=== PATIENT | female | born 1945 | race Caucasian/White ===

== ENCOUNTER 2016-05-13 09:39 | Inpatient (IN) ==
[2016-05-13] MEDS ORDERED: CeFAZolin Pre 2,000 MG/100 ML 2,000 MG/100 ML BAG IVPB ONE (09:59)
[2016-05-13] MEDS ORDERED: Ringers Solution, Lactated 1,000 ML IVC SCH ×2 (10:00→17:49)
[2016-05-13] MEDS ORDERED: Lidocaine 1% 20 ML MDV ID ONE (10:00)
--- NOTE | 2016-05-13 10:16 | Anesthesia Evaluation PreOp ---
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 Anxiety/depression maintained on Citalopram) Other Medical History: Renal (CRI/GFR = 52), Thyroid (maintained on Synthroid) Anesthesia History: No Prior Anesthetic Complications, Past Anesthesia (Hyster, Appy, Tubal , V-jrxaxop-Lybteovmtp Artery stent/Angioplasty via R-neck surgical exposure 01/2016) Alcohol Use: none Drug use: none Medications and Allergies Amlodipine [Norvasc] 5 mg PO HS 01/29/16 [History] Citalopram Hydrobromide [Celexa] 20 mg PO DAILY 01/29/16 [History] Digoxin [Lanoxin] 0.125 mg PO DAILY 01/29/16 [History] Levothyroxine [Synthroid] 50 mcg PO 0630 01/29/16 [History] Metoprolol [Lopressor] 50 mg PO BID 01/29/16 [History] Multivitamin [One Daily Essential] 1 each PO DAILY 01/29/16 [History] Simvastatin [Zocor] 20 mg PO HS 01/29/16 [History] Topiramate [Topamax] 50 mg PO HS 01/29/16 [History] Triamterene/HCTZ 37.5/25mg [Dyazide] 1 each PO DAILY 01/29/16 [History] Clopidogrel Bisulfate [Plavix] 75 mg PO DAILY #30 tablet 01/30/16 [Rx] Allergies No Known Allergies Allergy (Verified 01/29/16 07:34) - Meds/Allergy Pre-op Review Medications Reviewed: Yes Allergies Reviewed: Yes Beta Blockers on Current Med List: Yes (Metorprolol ) If Beta Blockers taken, Date/Time (Last Dose taken): 05/13/16 @0600 Anesthesia Results - Labs Laboratory Tests 05/08/16 05/08/16 05/08/16 08:22 08:22 08:22 WBC 8.7 Hgb 15.3 Hct 44.0 Plt Count 195 PT 12.3 H INR 1.1 APTT 30.2 Sodium 140 Potassium 3.3 L Chloride 103 Carbon Dioxide 29 BUN 18 Creatinine 1.04 Est GFR (Non-Af Amer) 52 L - Imaging EKG: image reviewed (58bpm SB w/ 1st degree AVB, marked LAD, LBBB) Anesthesia Exam O2 Sat Height 1.57 m Height 1.57 m Weight 54.431 kg Weight 54.431 kg O2 Sat by Pulse Oximetry 98 Vital Signs Temp Pulse Resp BP Pulse Ox 98.5 F 58 18 128/59 98 05/13/16 10:02 05/13/16 10:02 05/13/16 10:02 05/13/16 10:02 05/13/16 10:02 Height: 5'2" Weight: 121# BMi = 22 - HEENT Pupil (Motor): Pupils equal, EOMI Mallampati: II Teeth: Normal, Edentulous (upper) Denture Type: Upper: Complete Oral Opening: Greater than 3 - MACHINE CAGE MAKER LOC: Oriented MACHINE CAGE MAKER Motor: Normal RUE, Normal LUE, Normal RLE, Normal LLE, Normal Face MACHINE CAGE MAKER Sensory: Normal: RUE, LUE, RLE, LLE, Face - Cardiac Rhythm: Regular Murmur: None - Pulmonary Breath Sounds: bilateral Clear Respiratory Effort: Symmetrical Anesthesia Assess/Plan ASA Score: 3 (PVD, Hypothyroidism, HTN, Chol) Anesthetic Plan: General Autologous Blood: Yes Monitoring Plan: Standard Monitors, A-Line Recovery Plan: PACU Anes Supervising Prov Stmt: Pt seen/evaluated, R&B Discussed, questions answered and consent obtained. Hailey Pierre MD
[2016-05-13] MEDS ORDERED: Lidocaine 1% 20 ML MDV ONE (10:57)
[2016-05-13] MEDS ORDERED: Heparin 1,000 UNITS/500 mL NS 1,000 ML ONE (10:57)
--- NOTE | 2016-05-13 11:03 | History & Physical Report ---
Date of Encounter: 05/13/16 Time of Encounter: 11:03 24 Hour HP Update - Instructions Instructions: If the History and Physical is less than 30 days old and was completed prior to A.M. admission and or procedure and has NOT been updated on calendar day of procedure please complete this update prior to performing procedure. - Update Patient reports changes in Medical Condition: No Changes in assessment/condition: No Changes in Medication: No Preop tests/diagnostics Reviewed: Yes Surgery Remains Indicated: Yes Consent for Planned Operative Procedure(s) Verified: Yes - Pre-Operative Checklist Preoperative Checklist Indicated: Yes Prophylactic Antibiotic Ordered: Yes Home Medications Include Beta Jose Carlos: Yes Beta Jose Carlos Taken Today (Day of Surgery): Yes Beta Jose Carlos Taken Yesterday (Day Prior to Surgery): Yes Is VTE Prophylaxis Indicated?: Yes
[2016-05-13] MEDS ORDERED: *HR* Propofol 200 MG/20 ML VIAL IVP ONE (11:09)
[2016-05-13] MEDS ORDERED: Lidocaine -MPF 2% 2 ML VIAL ONE ×2 (11:09→11:16)
[2016-05-13] MEDS ORDERED: *HR* FentaNYL (PF) 100 MCG/2 ML VIAL ONE (11:09)
[2016-05-13] MEDS ORDERED: *HR* Succinylcholine 200 MG/10 ML VIAL IVP ONE (11:09)
[2016-05-13] MEDS ORDERED: Heparin 1,000 UNITS/500 mL NS 500 ML ONE (11:13)
--- NOTE | 2016-05-13 11:52 | Operative Note ---
Date of procedure: 05/13/16 Pre-op diagnosis: left carotid stenosis/left eye blindness Post-op diagnosis: same Procedure: left carotid endarterectomy with 8Fr shunt and patch angioplasty Complications: none Anesthesia: GETA Surgeon: Cl Toro Estimated blood loss (cc): 350 Specimen: none Condition: stable Disposition: PACU Procedure in Detail: History Greta Michel is a 71-year-old white female presented recently to the clinic with acute left eye visual loss. She initially had had a severe left-sided headache. When she will next morning she had loss of vision in her left eye. She was seen by ophthalmology. Plaque was detected in the retinal masters and the patient was referred back to vascular surgery after duplex scan was performed. The duplex scan showed a significant abnormality in the left internal carotid artery area this was significantly different than what was observed on the duplex scan from April 2015. This then led to an angiogram that was performed last week. This demonstrated a high-grade lesion of greater than 90-95% in the left internal carotid artery. The patient is also status post a innominate stent angioplasty which was performed in January 2016. The stent angioplasty is widely patent and there are no signs of thrombus or distortion of the stent. Procedure After informed consent was obtained patient was taken to the operating room. An arterial line was placed. The left neck was then sterilely prepped and draped. A timeout protocol was observed. An oblique incision was then made on the left neck. Dissection was carried down to the carotid sheath. The patient demonstrated significant inflammatory changes of the soft tissue and the perivascular tissue of the carotid sheath. The hypoglossal nerve was identified and preserved. Selective dissection was made of the external and common carotid artery. Because of the recent embolic phenomenon to the internal was not dissected until after heparin was administered. After the heparin was administered the internal was dissected and controlled. The vessel was then clamped. No and the artery was opened. A high-grade stenotic lesion was found well in excess of 90-95%. There is no fresh thrombus or signs of dissection. There was a large ulcer however on the posterior wall of the proximal left internal carotid artery. The endarterectomy was then begun at the distal common carotid artery. The endarterectomy was performed of this. Thyroid and external carotid artery orifice ease. The endpoint on the internal carotid artery was smooth. No tacking sutures were necessary. The bed of the vessel was then inspected for any residual debris. A patch angioplasty was then performed. This was sewn in position using 2 6-0 Prolene sutures. It was noted that the wall of the internal carotid artery was extraordinarily thin following the endarterectomy. After appropriate backbleeding and flushing the Czech shunt had been placed initially was clamped and divided and removed. The final few sutures were then placed into the patch and then the internal was allowed to backbleed. The external and common were opened and finally the internal was reopened. The patient had significant oozing from the needle holes along the entire length of the patch angioplasty site. The patient also required repair sutures in the very thin and endarterectomized internal carotid artery. This led to a greater than average blood loss due to this persistent oozing. It also led to the administration of intravenous protamine as well as topical agents including thrombin-soaked Gelfoam and fibrillar. Once hemostasis was achieved and verified the wound was copiously irrigated with antibiotic containing solution. It was then closed in layers. A dry sterile dressing was applied. The anesthetic was terminated. The patient awoke from anesthesia and was thought to be neurologically intact. She was then extubated and taken from the operating room to the recovery room in stable condition.
[2016-05-13] MEDS ORDERED: EPHEDrine 50 MG/ML VIAL ONE (11:57)
[2016-05-13] MEDS ORDERED: *HR* Remifentanil 2 MG VIAL IVP ONE (12:11)
[2016-05-13] MEDS ORDERED: *HR* Vasopressin 20 UNIT/ML VIAL ONE (12:18)
[2016-05-13] MEDS ORDERED: Protamine Sulfate 50 MG/5 ML VIAL IVP ONE (14:13)
[2016-05-13] MEDS ORDERED: Albumin Human 5% 25.0 GM/500 ML VIAL ONE (14:41)
[2016-05-13 14:56] LABS: Hematocrit 32.4 % (35.3-44.9)
[2016-05-13 15:00] LABS: Hemoglobin 11.1 g/dL (11.5-15.4)
[2016-05-13] MEDS ORDERED: Glycopyrrolate 0.2 MG/ML VIAL IVP ONE (16:07)
[2016-05-13] MEDS ORDERED: Glycopyrrolate 0.2 MG/ML VIAL ONE (16:07)
--- NOTE | 2016-05-13 17:23 | Anesthesia Evaluation Post Op ---
Date of Encounter: 05/13/16 Time of Encounter: 17:21 - Vital Signs Vital Signs: Vital Signs/O2 Sat/Glucose, Most Current Temp Pulse Resp BP Pulse Ox 05/13/16 16:47 59 18 82/36 99 05/13/16 16:37 63 18 81/35 98 05/13/16 16:27 97.0 F L 63 16 88/36 99 05/13/16 16:17 66 18 84/25 99 05/13/16 16:07 66 18 80/24 99 05/13/16 15:57 97.0 F L 55 16 79/24 99 05/13/16 15:47 57 16 90/34 97 05/13/16 15:37 59 16 100/40 95 05/13/16 15:27 96.9 F L 64 16 103/42 95 - Lungs Lungs: Clear Ascult./Percussion - Airway Airway: Non-obstructed - Cardiovascular Regular Rate - Mental Status Mental Status: Alert & Oriented, Answers Appropriately - Pain Pain Scale: 1 Pain Scale used: Numeric (1 - 10) - Nausea Vomiting Nausea Vomiting: Not Present - Hydration Hydration: Ice chips, Rodrigez catheter - Discharge PostOp Status: Transfer Patient to floor (Hypotensive BP despite otherwise doing well. Dr. Toro notified and requests Levophed gtt for target SBP >100 and placement in ICU) Anes Supervising Prov Stmt: Pt seen/evaluated, transferring to ICU for BP management. Pt otherwise doing well. - MD Ignacio
[2016-05-13] MEDS ORDERED: Norepinephrine 4 MG in D5% in Water 250 ML IVC SCH ×3 (17:30→18:45)
[2016-05-13] MEDS ORDERED: *HR* HYDROcodone/Acet 5/325 mg TABLET PO PRN ×2 (17:49→18:45)
[2016-05-13] MEDS ORDERED: *HR* Morphine 2 MG/ML SYRINGE IVP PRN (17:49)
[2016-05-13] MEDS ORDERED: Naloxone 0.4 MG/ML INJ IVP PRN ×2 (17:49→18:45)
[2016-05-13] MEDS ORDERED: Ondansetron 4 MG/2 ML VIAL IVP PRN ×2 (17:49→18:45)
[2016-05-13] MEDS ORDERED: Acetaminophen 325 MG TABLET PO PRN (17:49)
--- NOTE | 2016-05-13 19:40 | Event Note ---
Date of Encounter: 05/13/16 Time of Encounter: 18:30 The patient is status post a left carotid endarterectomy. While in the PACU the patient was noted to have persistent hypotension that did not respond to intravenous fluid bolus. I was notified later in the afternoon and recommended the patient be transferred to the intensive care unit so that an vasopressor drip could be started. I anticipate that the issue is related to the carotid sinus effect with overstimulation leading to hypotension following carotid endarterectomy. This is a temporary and transient effect. The patient needs support with vasopressors until this neurologic reflex resets itself. Therefore the patient was transferred to the intensive care unit on a leave the fed drip at a low dose. She is neurologically stable. There is no left neck hematoma. I reviewed with the patient and her these issues and answered all her questions.
[2016-05-13] MEDS: Acetaminophen 325 MG TABLET PO PRN (19:52)
[2016-05-13] MEDS: Topiramate 25 MG TABLET PO SCH (19:53)
[2016-05-13] MEDS: ceFAZolin 2,000 MG in D5% in Water 100 ML IVPB SCH (19:54)
[2016-05-13] MEDS: Ringers Solution, Lactated 1,000 ML IVC SCH (19:54)
[2016-05-13] MEDS: *HR* Digoxin 0.125 MG TABLET PO SCH (19:55)
[2016-05-13] MEDS ORDERED: ceFAZolin 2,000 MG in D5% in Water 100 ML IVPB SCH (20:00)
[2016-05-13] MEDS ORDERED: *HR* Digoxin 0.125 MG TABLET PO SCH ×2 (21:00)
[2016-05-13] MEDS ORDERED: Topiramate 25 MG TABLET PO SCH ×2 (21:00)
[2016-05-14] MEDS: *HR* Morphine 2 MG/ML SYRINGE IVP PRN ×2 (03:39→09:02)
[2016-05-14 03:54] LABS: Basophils % 0.3 %; Eosinophils % 0.3 %; Hematocrit 28.6 % (35.3-44.9); Hemoglobin 9.7 g/dL (11.5-15.4); Immature Granulocytes % 0.4 % (0-4); Lymphocytes # 1.7 K/mcL (0.6-4.6); Lymphocytes % 19.3 %; Mean Corpuscular HGB Conc 33.9 g/dL (31.6-35.5); Mean Corpuscular Hemoglobin 28.4 pg (28.0-33.3); Mean Corpuscular Volume 83.6 fL (83.0-100.0); Mean Platelet Volume 9.5 fL (9.4-12.4); Monocytes # 0.7 K/mcL (0.0-1.3); Monocytes % 7.7 %; Neutrophils # 6.4 K/mcL (1.6-8.9); Platelet Count 151 K/mcL (140-400); Red Blood Count 3.42 M/mcL (3.82-4.97); Red Cell Distribution Width 13.3 % (11.5-14.5)
[2016-05-14 04:06] LABS: BUN/Creatinine Ratio 16 (6-26); Blood Urea Nitrogen 13 mg/dL (7-20); Calcium 8.5 mg/dL (8.6-10.8); Carbon Dioxide 24 mEq/L (19-29); Chloride 108 mEq/L (98-109); Glucose 122 mg/dL (70-99); Osmolality,Calculated 295 (280-300); Potassium 3.3 mEq/L (3.5-4.5); Sodium 142 mEq/L (136-145); eGFR For African Americans > 60 (> 60); eGFR For Non-African Americans > 60 (> 60)
[2016-05-14] MEDS: ceFAZolin 2,000 MG in D5% in Water 100 ML IVPB SCH (04:37)
[2016-05-14] MEDS ORDERED: Chloraseptic Spray 177 ML BOTTLE MM PRN (08:10)
[2016-05-14] MEDS ORDERED: BENZOCAINE/MENTHOL 1 LOZENGE (BAG OF 6) MM PRN (08:11)
[2016-05-14] MEDS ORDERED: amLODIPine 5 MG TABLET PO SCH (09:00)
[2016-05-14] MEDS ORDERED: NON-FORMULARY MEDICATION 1 EACH EACH (Multivitamin [One Daily Essential] 1 EACH) PO SCH (09:00)
[2016-05-14] MEDS ORDERED: Multivit/Ca/Min/Fe/FA 1 TAB TABLET PO SCH (09:00)
[2016-05-14] MEDS: Multivit/Ca/Min/Fe/FA 1 TAB TABLET PO SCH (09:04)
--- NOTE | 2016-05-14 09:04 | Pulmonology Consult Note ---
Date of Encounter: 05/14/16 Time of Encounter: 09:01 Assessment and Plan (1) Hypotension Current Visit: Yes Status: Acute Postprocedural hypotension and bradycardia in this particular individual are likely secondary to manipulation of the carotid bulb during carotid endarterectomy. Typically, these abnormal cardiovascular effects resolve over 48 hour period of time. Given the continued need for very low dose of IV pressor in this patient who is otherwise well perfused clinically and not suffering form hypotension related end organ dysfunction, the patient will be placed on Midodrine to transition off IV pressor. If her clinical status is acceptable during the latter part of the afternoon, per my discussion with Dr. Toro, the patient may be discharged from the intensive care unit and possibly from the hospital. Her other background medical problems which include peripheral vascular disease , hypertension, hyperlipidemia and paroxysmal SVT are currently active. Some point in the not too distant future, the patient will be able to resume her chronic medical therapies for treatment of these disorders. Qualifiers: Hypotension type: postprocedural hypotension Qualified Code(s): I95.81 - Postprocedural hypotension Code(s): I95.9 - Hypotension, unspecified SNOMED Code(s): 70668696 History of Present Illness Consult date: 05/14/16 Chief complaint: Hypotension History of present illness: This is a pleasant 71-year-old female who underwent a left carotid endarterectomy on by Dr. Toro. The surgery was unremarkable however postoperatively, all recovering in the postanesthesia care unit, bradycardia and hypotension were noted resistant to fluid administration hence the patient was placed on low-dose pressor agent and admitted to the intensive care unit. This morning, the patient is fully awake alert denies any specific complaints other than sore throat ( not horse, normal voice quality; likely due to prior intubation) and only requires Levophed at approximately 2 ug to maintain acceptable blood pressure. Past Med Surg Social Fam HX - Past Medical History Medical history: hyperlipidemia, hypertension, thyroid disease, other Psychiatric history: no psych history - Past Surgical History Surgical History: appendectomy, hysterectomy, other - Social History Smoking Status: Former smoker Smokeless Tobacco Status: No Alcohol use: none Drug use: none Medications and Allergies Amlodipine [Norvasc] 5 mg PO DAILY 01/29/16 [History] Citalopram Hydrobromide [Celexa] 20 mg PO DAILY 01/29/16 [History] Digoxin [Lanoxin] 0.125 mg PO HS 01/29/16 [History] Levothyroxine [Synthroid] 50 mcg PO HS 01/29/16 [History] Metoprolol [Lopressor] 50 mg PO BID 01/29/16 [History] Multivitamin [One Daily Essential] 1 each PO DAILY 01/29/16 [History] Simvastatin [Zocor] 20 mg PO HS 01/29/16 [History] Topiramate [Topamax] 50 mg PO HS 01/29/16 [History] Triamterene/HCTZ 37.5/25mg [Dyazide] 1 each PO DAILY 01/29/16 [History] Clopidogrel Bisulfate [Plavix] 75 mg PO 1200 05/13/16 [History] Allergies No Known Allergies Allergy (Verified 05/13/16 10:52) All Systems: A 10-system review of systems was performed and is negative for pertinent findings except as documented above in the HPI. - EENT Eyes: other (Transient left visual disturbance) Physical Examination Vital Signs: Vital Signs, Last 4 Hours Temp Pulse Resp BP Pulse Ox 05/14/16 07:56 98.1 F 05/14/16 06:00 65 17 119/51 97 Eyes: nonicteric ENT: oropharynx moist, other (Left carotid endarterectomy site clean and dry) Auscultation: bilateral: clear Cardiovascular: regular rate and rhythm, other (Gallop) Gastrointestinal: normoactive bowel sounds, non-distended Extremities: no cyanosis, pink and warm normal mental status, non-focal exam Results - Laboratory Findings CBC and BMP: 05/14/16 03:47 05/14/16 03:47 Abnormal lab findings: Abnormal lab results RBC 3.42 M/mcL (3.82-4.97) L 05/14/16 03:47 Hgb 9.7 g/dL (11.5-15.4) L 05/14/16 03:47 Hct 28.6 % (35.3-44.9) L 05/14/16 03:47 Potassium 3.3 mEq/L (3.5-4.5) L 05/14/16 03:47 Glucose 122 mg/dL (70-99) H 05/14/16 03:47 POC Glucose 108 (58-89) H 05/13/16 17:42 Calcium 8.5 mg/dL (8.6-10.8) L 05/14/16 03:47 - Clinical Findings Intake & Output: Intake & Output 05/13/16 05/14/16 05/14/16 23:59 07:59 15:59 Intake Total 1245 / 1245 100 / 100 Output Total 350 / 350 1450 / 1450 Balance 895 / 895 -1350 / -1350 Weight 62.913 kg Consult Discharge Plan - Plan Referrals: Greg Locke MD [Primary Care Provider] -
[2016-05-14] MEDS: Acetaminophen 325 MG TABLET PO PRN (12:08)
[2016-05-14] MEDS: Ringers Solution, Lactated 1,000 ML IVC SCH (17:18)
--- NOTE | 2016-05-14 19:26 | Vascular/[facility] Progress Note ---
Date of Encounter: 05/14/16 Time of Encounter: 18:30 - Assessment and plan (1) Acute blood loss as cause of postoperative anemia Current Visit: Yes Status: Acute Acute blood loss anemia. Hemoglobin is 9.7. Transfusion is not indicated. (2) Carotid artery disease Current Visit: Yes Status: Acute Qualifiers: Laterality: left Qualified Code(s): I77.9 - Disorder of arteries and arterioles, unspecified (3) Blindness of left eye Current Visit: Yes Status: Acute Left eye blindness thought secondary to embolus from left carotid stenosis. (4) Hypotension Current Visit: Yes Status: Acute Patient has low-grade hypotension. Patient is responsive to very low doses of levo fed. This is under management by the intensive care unit team. The goal is to wean the levo fed and a have the patient discharged to home within the next 24-48 hours. Qualifiers: Hypotension type: postprocedural hypotension Qualified Code(s): I95.81 - Postprocedural hypotension - Subjective Interval history: Patient is status post day #1 following left carotid endarterectomy. She was noted to have hypotension in the PACU and required transfer to the intensive care unit for low-dose levo fat drip. The patient complains of sore throat and some discomfort with swallowing. She has no complaints of new neurologic deficits. Vital Signs, Last 4 Hours Temp Pulse Resp BP Pulse Ox 05/14/16 18:00 76 16 120/50 98 05/14/16 17:00 99.1 F 74 16 108/44 98 05/14/16 16:00 74 16 115/60 99 - Physical Examination General: Present: Conversant, No Apparent Distress HEENT: Present: Atraumatic Neck: Absent: JVD, Midline deformity, Tracheal deviation Cardiac: Present: Reg Rate and Rhythm Lungs: Present: Normal Breath Sounds Neuro: Present: Alert and responsive, No focal deficits noted, Cranial nerves grossly intact Vascular: Present: Normal capillary refill Abdomen: Present: Soft Skin: Present: No rashes noted on visualized skin Musculoskeletal: Present: No Chest Wall Tenderness - VTE Documentation of Mechanical Device: Intermittent pneumatic compression device Results 05/14/16 03:47 05/14/16 03:47 Lab Results, Last 24 hours 05/14/16 05/14/16 03:47 03:47 WBC 8.9 Hgb 9.7 L Hct 28.6 L Plt Count 151 Sodium 142 Potassium 3.3 L Chloride 108 Carbon Dioxide 24 BUN 13 Creatinine 0.80 Glucose 122 H Calcium 8.5 L Consult Discharge Plan - Plan Referrals: Greg Locke MD [Primary Care Provider] -
[2016-05-14] MEDS: Topiramate 25 MG TABLET PO SCH (20:33)
[2016-05-14] MEDS: *HR* Heparin 5,000 UNIT/ML VIAL SQ SCH (20:33)
[2016-05-14] MEDS: *HR* Digoxin 0.125 MG TABLET PO SCH (20:34)
[2016-05-15 08:05] LABS: Ionized Calcium 1.14 mmol/L (1.15-1.35)
[2016-05-15 08:09] LABS: BUN/Creatinine Ratio 13 (6-26); Blood Urea Nitrogen 9 mg/dL (7-20); Calcium 8.7 mg/dL (8.6-10.8); Carbon Dioxide 25 mEq/L (19-29); Chloride 105 mEq/L (98-109); Glucose 120 mg/dL (70-99); Magnesium 1.3 mg/dL (1.6-2.6); Osmolality,Calculated 288 (280-300); Phosphorous 2.9 mg/dL (2.3-4.7); Potassium 3.2 mEq/L (3.5-4.5); Sodium 139 mEq/L (136-145); eGFR For African Americans > 60 (> 60); eGFR For Non-African Americans > 60 (> 60)
[2016-05-15 08:12] LABS: Basophils % 0.2 %; Eosinophils % 0.5 %; Hemoglobin 9.7 g/dL (11.5-15.4); Immature Granulocytes % 0.5 % (0-4); Lymphocytes # 1.2 K/mcL (0.6-4.6); Lymphocytes % 14.8 %; Mean Corpuscular HGB Conc 33.4 g/dL (31.6-35.5); Mean Corpuscular Hemoglobin 28.3 pg (28.0-33.3); Mean Corpuscular Volume 84.5 fL (83.0-100.0); Mean Platelet Volume 10.1 fL (9.4-12.4); Monocytes # 0.6 K/mcL (0.0-1.3); Monocytes % 7.6 %; Neutrophils # 6.2 K/mcL (1.6-8.9); Platelet Count 132 K/mcL (140-400); Red Blood Count 3.43 M/mcL (3.82-4.97); Red Cell Distribution Width 13.5 % (11.5-14.5); Segmented Neutrophils % 76.4 %
[2016-05-15] MEDS: Multivit/Ca/Min/Fe/FA 1 TAB TABLET PO SCH (08:12)
[2016-05-15] MEDS: *HR* Heparin 5,000 UNIT/ML VIAL SQ SCH (08:21)
[2016-05-15] MEDS: Acetaminophen 325 MG TABLET PO PRN (08:51)
--- NOTE | 2016-05-15 09:12 | Event Note ---
Date of Encounter: 05/15/16 Time of Encounter: 09:07 Mrs. Michel was successfully transitioned off intravenous pressor agent last p.m. and currently [place] blood pressure and mentation. No additional acute events were noted overnight. Anand continues to note very mild and is of her throat denies any significant dysphagia or alteration of voice quality. On examination the patient is awake and alert. Vitals were reviewed. Her lungs were clear to auscultation. From my perspective, the patient can be transferred out of the intensive care unit and possibly discharge to home later today. I from continuation of her home medications treatment of hypertension, hyperlipidemia and paroxysmal SVT, the patient is currently receiving Midodrine 5 mg 3 times daily for treatment of postop hypotension thought to represent vaso-plegia due to carotid bulb manipulation during carotid endarterectomy. If her blood pressure continues to remain acceptable over the next several days in the outpatient arena then the medication be discontinued. I will defer to Dr. Toro's discretion disposition at this point. [facility] [phone]
--- NOTE | 2016-05-15 12:00 | Discharge Summary ---
Date of Encounter: 05/15/16 Time of Encounter: 11:47 - Discharge Diagnosis (1) Acute blood loss as cause of postoperative anemia Priority: Secondary Status: Acute (2) Carotid artery disease Priority: Primary Status: Acute Qualifiers: Laterality: left Qualified Code(s): I77.9 - Disorder of arteries and arterioles, unspecified (3) Blindness of left eye Priority: Secondary Status: Acute (4) Hypotension Priority: Secondary Status: Acute Qualifiers: Hypotension type: postprocedural hypotension Qualified Code(s): I95.81 - Postprocedural hypotension - Discharge Medications Prescriptions: Acetaminophen w/Codeine Soln [Tylenol w/Codeine Liq 120-12 mg] 5 ml PO Q6HR PRN #14 solution PRN Reason: Pain Benzocaine/Menthol [Chloraseptic Sore Throat Lozng] 1 lozenge MM QID PRN #20 box PRN Reason: Sore Throat Chloraseptic Burney [Chloraseptic] 2 spray MM QID PRN #1 bottle PRN Reason: Sore Throat Home Medications: Citalopram Hydrobromide [Celexa] 20 mg PO DAILY 01/29/16 [History] Digoxin [Lanoxin] 0.125 mg PO HS 01/29/16 [History] Levothyroxine [Synthroid] 50 mcg PO HS 01/29/16 [History] Multivitamin [One Daily Essential] 1 each PO DAILY 01/29/16 [History] Simvastatin [Zocor] 20 mg PO HS 01/29/16 [History] Topiramate [Topamax] 50 mg PO HS 01/29/16 [History] Clopidogrel Bisulfate [Plavix] 75 mg PO 1200 05/13/16 [History] Acetaminophen w/Codeine Soln [Tylenol w/Codeine Liq 120-12 mg] 5 ml PO Q6HR PRN #14 solution 05/15/16 [Rx] Benzocaine/Menthol [Chloraseptic Sore Throat Lozng] 1 lozenge MM QID PRN #20 box 05/15/16 [Rx] Chloraseptic Burney [Chloraseptic] 2 spray MM QID PRN #1 bottle 05/15/16 [Rx] Allergies/Adverse Reactions: Allergies No Known Allergies Allergy (Verified 05/13/16 10:52) Date of admission: 05/13/16 17:48 Primary care physician: Greg Locke, Consults: Pulmonary /intensive care Procedure(s) Performed: Left carotid endarterectomy Discharging clinician: Cl Toro Anticipated date of discharge: 05/15/16 - Patient Status Disposition: Home, Self-Care Condition: Good Functional capacity at discharge: independent ambulation Overall status at discharge: patient is progressing back to baseline - Discharge Instructions Follow Up With: Greg Locke MD [Primary Care Provider] - Cl Toro MD [Partnered Physician] - (Patient is to follow-up with Dr. Toro in 2 weeks. Call office prior to discharge to arrange appointment for 2 weeks from yesterday.) Additional Instructions: Patient may ambulate inside and outside. Patient may use stairs as tolerated. The left neck incision is to be kept dry for total 5 days following surgery. Ice pack to left neck for 2 days following discharge. Patient is not to drive an automobile. As necessary supplement diet with ensure for protein. Patient is to hold the triamterene/hydrochlorothiazide, metoprolol, and amlodipine until the blood pressure is 130 mmHg or higher. Then the patient is to resume normal dosing as per her preoperative dosage. Prescription for Tylenol No. 3 elixir for postoperative analgesia at home. Patient may also use liquid acetaminophen or liquid Motrin for postoperative pain control at home. - Diet and Activity Activity: increase activity as tolerated Diet: low fat, low cholesterol - Hospital Course Hospital course: Ms. Michel is a 71 year old female With acute onset left eye blindness. Workup revealed a high-grade left internal carotid artery stenosis. The patient underwent a left carotid endarterectomy on May 13. The patient experienced asymptomatic hypotension postoperatively thought due to the carotid sinus and vagal effect after carotid endarterectomy. She required transfer to the intensive care unit from the PACU for low-dose levo fed drip. This was successful in maintaining a normal blood pressure. Her normal antihypertensives were held. She was found to be neurologically intact. She was weaned off the levo fed in the tick eradicator hours of postoperative day #2. She was able to ambulate. She was felt fit for discharge on the morning of postoperative day #2. Instructions in regards to diet exercise and medications were provided to the patient. Due to the hypotension the patient's metoprolol, amlodipine, and triamterene/ hydrochlorothiazide will be held until her home blood pressure is measured at 130 mm Hg or greater. - Time Spent with Patient Total time spent providing and/or coordinating discharge services: Exam Vital Signs, Last 4 Hours Pulse Resp BP Pulse Ox 05/15/16 08:00 86 18 123/51 98 General: Present: Conversant, No Apparent Distress HEENT: Present: Atraumatic, Normocephaly Neck: Absent: JVD, Midline deformity, Tracheal deviation Cardiac: Present: Reg Rate and Rhythm, Normal S1 and S2 Lungs: Present: Normal Breath Sounds Neuro: Present: Alert and responsive, Cranial nerves grossly intact. Absent: Other Abdomen: Present: Soft Vascular: Present: Normal capillary refill, Surgical incisions (Left neck surgical incision is clean and dry) - VTE Documentation of Mechanical Device: Intermittent pneumatic compression device
[2016-05-15 12:32] VITALS: BP 91/45
== END 2016-05-15 13:46 | disposition home or self-care (01) | DRG 38 ==
LOC: ICNU 17:48
PROVIDERS: ADMIT Surgery Vascular Surgery; ATTEND Surgery Vascular Surgery

== ENCOUNTER 2019-06-16 10:57 | Observation (INO) ==
[2019-06-16 11:58] LABS: Basophils % 0.4 %; Eosinophils # 0.1 K/mcL (0.0-0.6); Eosinophils % 0.6 %; Hematocrit 46.1 % (35.3-44.9); Hemoglobin 15.4 g/dL (11.5-15.4); Immature Granulocytes % 0.3 % (0-4); Lymphocytes % 25.7 %; Mean Corpuscular HGB Conc 33.4 g/dL (31.6-35.5); Mean Corpuscular Hemoglobin 28.4 pg (28.0-33.3); Mean Corpuscular Volume 84.9 fL (83.0-100.0); Mean Platelet Volume 9.8 fL (9.4-12.4); Monocytes # 0.7 K/mcL (0.0-1.3); Monocytes % 9.2 %; Platelet Count 172 K/mcL (140-400); Red Blood Count 5.43 M/mcL (3.82-4.97); Red Cell Distribution Width 13.1 % (11.5-14.5); Segmented Neutrophils % 63.8 %; White Blood Count 7.8 K/mcL (4.3-11.1)
[2019-06-16 12:09] LABS: Bilirubin,Urine Negative (Negative); Blood,Urine Negative (Negative); Clarity,Urine Clear (Clear); Color,Urine Yellow (Yellow); Glucose,Urine (UA) Normal (Normal); Ketones,Urine Negative (Negative); Leukocyte Esterase,Urine Trace (Negative); Nitrite,Urine Negative (Negative); Protein,Urine 100 mg/dL (Neg-Trace); Specific Gravity,Urine 1.015 (1.010-1.025); Urobilinogen,Urine Normal (Normal)
[2019-06-16 12:11] LABS: Activated Partial Thrombo Time 31.3 Seconds (26.0-36.0)
[2019-06-16 12:12] LABS: INR 1.1; Prothrombin Time 12.5 Seconds (9.4-12.1)
[2019-06-16 12:14] LABS: Bacteria,Urine Few per hpf (None-Few); Hyaline Casts,Urine None Seen per lpf (None-Few); RBC,Urine 0-3 per hpf (0-3); Squamous Epithelial Cell,Urine Many per lpf (None-Few)
[2019-06-16 12:21] LABS: Alanine Aminotransferase 22 Units/L (7-52); Albumin 4.3 g/dL (3.5-5.7); Albumin/Globulin Ratio 1.6 (1.1-2.2); Alkaline Phosphatase 61 Units/L (34-104); Aspartate Amino Transferase 20 Units/L (13-39); BUN/Creatinine Ratio 13 (6-26); Bilirubin,Direct 0.1 mg/dL (0.0-0.2); Bilirubin,Indirect 0.4 mg/dL (0.0-1.0); Bilirubin,Total 0.5 mg/dL (0.3-1.0); Blood Urea Nitrogen 12 mg/dL (8-23); Calcium 9.9 mg/dL (8.6-10.3); Carbon Dioxide 26 mEq/L (23-29); Chloride 105 mEq/L (98-107); Ethanol < 10 mg/dL (Less than 10); Globulin 2.7 g/dL (2.4-3.5); Glucose 149 mg/dL (70-105); Osmolality,Calculated 295 (280-300); Potassium 3.6 mEq/L (3.5-5.1); Sodium 141 mEq/L (136-145); Troponin I 0.03 ng/mL (< 0.04); eGFR For African Americans > 60 (> 60); eGFR For Non-African Americans 58 (> 60)
[2019-06-16 12:34] LABS: Thyroid Stimulating Hormone 3.042 mcIU/mL (0.340-5.600)
[2019-06-16] MEDS ORDERED: cefTRIAXone 1,000 MG in Water for inj. (sterile) 10 ML IVP ONE (12:35)
[2019-06-16] MEDS ORDERED: Naloxone 0.4 MG/ML INJ IVP PRN (15:02)
[2019-06-16 15:20] LABS: Digoxin 0.7 ng/mL (0.8-2.0)
[2019-06-16] MEDS ORDERED: *HR* Dextrose 50 % in Water (Syg) 50 ML SYRINGE IVP PRN (15:58)
[2019-06-16] MEDS ORDERED: D5% in Water 1,000 ML IVC PRN (15:58)
[2019-06-16] MEDS ORDERED: Dextrose Gel 15 GM/37.5 ML TUBE PO PRN ×2 (15:58)
[2019-06-16] MEDS: Aspirin 325 MG TABLET PO SCH (16:54)
[2019-06-16] MEDS: Insulin LISPRO 300 UNITS/3 ML VIAL SQ SCH ×2 (17:22→20:21)
[2019-06-16] MEDS: *HR* Digoxin 0.125 MG TABLET PO SCH (20:20)
[2019-06-16] MEDS: *HR* Heparin 5,000 UNIT/ML VIAL SQ SCH (20:22)
[2019-06-16] MEDS ORDERED: Haloperidol Lactate 5 MG/ML VIAL IVP ONE (22:29)
[2019-06-17] MEDS ORDERED: Acetaminophen 325 MG TABLET PO ONE (02:02)
[2019-06-17] MEDS: *HR* Heparin 5,000 UNIT/ML VIAL SQ SCH ×4 (05:52→21:11)
[2019-06-17] MEDS: cefTRIAXone 1,000 MG in Water for inj. (sterile) 10 ML IVP SCH (08:11)
[2019-06-17] MEDS: Aspirin 325 MG TABLET PO SCH (08:11)
[2019-06-17] MEDS: Insulin LISPRO 300 UNITS/3 ML VIAL SQ SCH ×4 (08:17→20:23)
[2019-06-17] MEDS ORDERED: hydrALAZINE 10 MG TABLET PO PRN (11:13)
[2019-06-17] MEDS: Acetaminophen 325 MG TABLET PO PRN ×2 (11:56→23:09)
[2019-06-17] MEDS: carvediloL 6.25 MG TABLET PO SCH ×2 (11:57→16:43)
[2019-06-17] MEDS: *HR* Digoxin 0.125 MG TABLET PO SCH (20:26)
[2019-06-17 21:31] LABS: Amphetamine Screen,Urine Negative ng/mL (Cutoff=1000); Barbiturate Screen,Urine Negative ng/mL (Cutoff=200); Benzodiazepines Screen,Urine Negative ng/mL (Cutoff=200); Cannabinoid Screen,Urine Negative ng/mL (Cutoff = 50); Cocaine Screen,Urine Negative ng/mL (Cutoff= 300); Opiate Screen,Urine Negative ng/mL (Cutoff=300); Phencyclidine Screen,Urine Negative ng/mL (Cutoff=25)
[2019-06-18] MEDS: carvediloL 6.25 MG TABLET PO SCH (06:48)
[2019-06-18 06:56] VITALS: BP 186/72
[2019-06-18] MEDS: cefTRIAXone 1,000 MG in Water for inj. (sterile) 10 ML IVP SCH (09:04)
[2019-06-18] MEDS ORDERED: Furosemide 20 MG TABLET PO SCH (09:15)
[2019-06-18] MEDS ORDERED: lisinopriL 5 MG TABLET PO SCH (09:15)
[2019-06-18] MEDS: Aspirin 325 MG TABLET PO SCH (09:24)
[2019-06-18] MEDS: Insulin LISPRO 300 UNITS/3 ML VIAL SQ SCH (09:25)
[2019-06-18] MEDS ORDERED: Topiramate 25 MG TABLET PO SCH (21:00)
== END 2019-06-18 10:10 | disposition home or self-care (01) ==
LOC: 3BNU 10:57 → EMEROOARM 10:57 → SUATTDRO 14:34 → 3BNU 14:39
PROVIDERS: ADMIT Internal Medicine; ATTEND Internal Medicine

== ENCOUNTER 2020-04-02 13:42 | Observation (INO) ==
[2020-04-02] MEDS ORDERED: *HR* Atropine Sulfate 1 MG/10 ML SYRINGE IVP ONE (13:59)
[2020-04-02 14:16] LABS: Basophils % 0.3 %; Eosinophils # 0.1 K/mcL (0.0-0.6); Eosinophils % 0.8 %; Hematocrit 45.2 % (35.3-44.9); Hemoglobin 14.7 g/dL (11.5-15.4); Immature Granulocytes % 0.2 % (0-4); Lymphocytes # 2.1 K/mcL (0.6-4.6); Lymphocytes % 23.2 %; Mean Corpuscular HGB Conc 32.5 g/dL (31.6-35.5); Mean Corpuscular Hemoglobin 28.4 pg (28.0-33.3); Mean Corpuscular Volume 87.3 fL (83.0-100.0); Mean Platelet Volume 10.5 fL (9.4-12.4); Monocytes # 0.7 K/mcL (0.0-1.3); Monocytes % 7.9 %; Neutrophils # 6.2 K/mcL (1.6-8.9); Platelet Count 182 K/mcL (140-400); Red Blood Count 5.18 M/mcL (3.82-4.97); Red Cell Distribution Width 13.2 % (11.5-14.5); Segmented Neutrophils % 67.6 %; White Blood Count 9.2 K/mcL (4.3-11.1)
[2020-04-02 14:24] LABS: INR 1.3; Prothrombin Time 14.4 Seconds (9.4-12.1)
[2020-04-02 14:37] LABS: Alanine Aminotransferase 19 Units/L (7-52); Albumin 4.1 g/dL (3.5-5.7); Albumin/Globulin Ratio 1.5 (1.1-2.2); Alkaline Phosphatase 67 Units/L (34-104); Aspartate Amino Transferase 17 Units/L (13-39); BUN/Creatinine Ratio 14 (6-26); Bilirubin,Total 0.5 mg/dL (0.3-1.0); Blood Urea Nitrogen 14 mg/dL (8-23); Calcium 9.4 mg/dL (8.6-10.3); Carbon Dioxide 24 mEq/L (23-29); Chloride 106 mEq/L (98-107); Globulin 2.7 g/dL (2.4-3.5); Glucose 153 mg/dL (70-105); Osmolality,Calculated 292 (280-300); Potassium 3.7 mEq/L (3.5-5.1); Sodium 139 mEq/L (136-145); Total Protein 6.8 g/dL (6.4-8.9); Troponin I 0.03 ng/mL (< 0.04); eGFR For African Americans > 60 (> 60); eGFR For Non-African Americans 54 (> 60)
[2020-04-02 14:50] LABS: Thyroid Stimulating Hormone 5.124 mcIU/mL (0.340-5.600)
[2020-04-02 15:06] LABS: Digoxin 1.2 ng/mL (0.8-2.0)
[2020-04-02] MEDS ORDERED: Perflutren Lipid Microsphere 1.3 ML in 0.9 % Sodium Chloride 8.7 ML IVP PRN (15:45)
[2020-04-02] MEDS ORDERED: *HR* Dextrose 50 % in Water (Vial) 50 ML VIAL IVP PRN (16:30)
[2020-04-02] MEDS ORDERED: D5% in Water 1,000 ML IVC PRN (16:30)
[2020-04-02] MEDS ORDERED: Dextrose Gel 15 GM/37.5 ML TUBE PO PRN ×2 (16:30)
[2020-04-02] MEDS: *HR* Heparin 5,000 UNIT/ML VIAL SQ SCH (19:34)
[2020-04-02] MEDS: Acetaminophen 325 MG TABLET PO PRN (21:03)
[2020-04-02] MEDS ORDERED: *HR* Atropine Sulfate 1 MG/10 ML SYRINGE IVP STA (23:39)
[2020-04-02] MEDS ORDERED: *HR* Atropine Sulfate 1 MG/10 ML SYRINGE ONE (23:42)
[2020-04-03 00:02] LABS: ABG Base Excess -3 mEq/L (-2 to 3); ABG HCO3 21 mEq/L (21-27); ABG Oxygen Saturation 88 % (95-98); ABG PCO2 34 mmHg (35-45); ABG PO2 53 mmHg (85-104); ABG TCO2 22 mEq/L (20-26)
[2020-04-03 01:13] LABS: Magnesium 1.9 mg/dL (1.6-2.6); Troponin I < 0.03 ng/mL (< 0.04)
[2020-04-03 03:00] LABS: Adenovirus Not Detected (Not Detect); Bordetella Pertussis Not Detected (Not Detect); Chlamydophila pneumoniae Not Detected (Not Detect); Coronavirus 229E Not Detected (Not Detect); Coronavirus HKU1 Not Detected (Not Detect); Coronavirus NL63 Not Detected (Not Detect); Coronavirus OC43 Not Detected (Not Detect); Human Metapneumovirus Not Detected (Not Detect); Human Rhinovirus/Enterovirus Not Detected (Not Detect); Influenza A Subtype 2009 H1 Not Detected (Not Detect); Influenza B Not Detected (Not Detect); Mycoplasma pneumoniae Not Detected (Not Detect); Parainfluenza Virus 1 Not Detected (Not Detect); Parainfluenza Virus 2 Not Detected (Not Detect); Parainfluenza Virus 3 Not Detected (Not Detect); Parainfluenza Virus 4 Not Detected (Not Detect); Respiratory Syncytial Virus Not Detected (Not Detect); SARS-CoV-2 Not Detected (Not Detect)
[2020-04-03] MEDS: *HR* Heparin 5,000 UNIT/ML VIAL SQ SCH ×2 (05:56→17:29)
[2020-04-03] MEDS: amLODIPine 5 MG TABLET PO SCH (08:46)
[2020-04-03] MEDS: Aspirin Enteric Coated 81 MG Tablet PO SCH (08:46)
[2020-04-03] MEDS ORDERED: CeFAZolin Syr 2,000MG/20 ML 2,000 MG/20 ML SYRINGE IVPB ONE (09:49)
[2020-04-03] MEDS ORDERED: *HR* FentaNYL (PF) 100 MCG/2 ML VIAL ONE (11:18)
[2020-04-03] MEDS ORDERED: 0.9 % Sodium Chloride 1,000 ML ONE (11:18)
[2020-04-03] MEDS ORDERED: 0.9 % Sodium Chloride 500 ML ONE (11:18)
[2020-04-03] MEDS ORDERED: *HR* Midazolam HCl 2 MG/2 ML VIAL ONE (11:19)
[2020-04-03] MEDS ORDERED: Furosemide 40 MG/4 ML VIAL IVP ONE (11:32)
[2020-04-03] MEDS: Acetaminophen 325 MG TABLET PO PRN ×2 (14:41→23:38)
[2020-04-03] MEDS: carvediloL 6.25 MG TABLET PO SCH (17:30)
[2020-04-03] MEDS ORDERED: Furosemide 20 MG/2 ML VIAL IVP ONE (18:00)
[2020-04-03] MEDS: CeFAZolin 2 GM/120 ML BAG IVPB SCH (20:42)
[2020-04-03] MEDS ORDERED: Topiramate 25 MG TABLET PO SCH (21:00)
[2020-04-04 02:55] LABS: BUN/Creatinine Ratio 18 (6-26); Blood Urea Nitrogen 14 mg/dL (8-23); Carbon Dioxide 22 mEq/L (23-29); Chloride 107 mEq/L (98-107); Potassium 3.5 mEq/L (3.5-5.1); Sodium 139 mEq/L (136-145); eGFR For African Americans > 60 (> 60); eGFR For Non-African Americans > 60 (> 60)
[2020-04-04] MEDS: *HR* Heparin 5,000 UNIT/ML VIAL SQ SCH (05:12)
[2020-04-04] MEDS: CeFAZolin 2 GM/120 ML BAG IVPB SCH (05:13)
[2020-04-04 07:33] VITALS: BP 191/63
[2020-04-04] MEDS ORDERED: Furosemide 40 MG/4 ML VIAL IVP ONE (07:38)
[2020-04-04] MEDS: Acetaminophen 325 MG TABLET PO PRN (09:35)
[2020-04-04] MEDS: amLODIPine 5 MG TABLET PO SCH (09:36)
[2020-04-04] MEDS: Aspirin Enteric Coated 81 MG Tablet PO SCH (09:36)
[2020-04-04] MEDS: carvediloL 6.25 MG TABLET PO SCH (09:36)
== END 2020-04-04 14:35 | disposition home or self-care (01) ==
LOC: 2NNU 13:42 → EMEROOARM 13:42 → SUATTDRO 17:55 → 2NNU 18:35
PROVIDERS: ADMIT Internal Medicine; ATTEND Pharmacist